=== PATIENT | male | born 1970 | race Two or more races ===

== ENCOUNTER 2017-10-01 00:38 | Emergency (ER) | payer OTHER ==
[~2017-10-01] VITALS: Ht 170.2 cm; Wt 86.2 kg
[2017-10-01] MEDS ORDERED: PEPCID40 MG PO (04:49)
[2017-10-01] MEDS ORDERED: BENADRYL25 MG PO (04:49)
[2017-10-01] MEDS ORDERED: MEDROL8 MG PO (04:49)
== END 2017-10-01 04:55 | disposition home or self-care (01) ==
LOC: ER 00:38
DX: L50.8 Other urticaria (principal)

== ENCOUNTER 2018-06-05 15:00 | Emergency (ER) | payer OTHER ==
[~2018-06-05] VITALS: Ht 170.2 cm; Wt 86.2 kg
[~2018-06-05 15:00] MED LIST: BENADRYL25 MG PO; MEDROL8 MG PO; PEPCID40 MG PO
== END 2018-06-05 18:03 | disposition home or self-care (01) ==
LOC: ER 15:00
DX: B34.9 Viral infection, unspecified (principal)